=== PATIENT | female | born 1935 | race Caucasian/White ===

== ENCOUNTER → 2017-08-03 | Outpatient (CLI) | payer MEDICARE, OTHER ==
[~2017-08-03] MED LIST: ASPI81EC PO; ATEN50; BUPIVICAINE TOP; CHOL10002 PO; CONEST.625; DEXA2 PO; DEXA4 PO; DIPATR; DONE5 PO; DOXA4 PO; EPOE20I; ERGO400; ERGO400 PO; ESOM20; ESOM20 PO; FENT50TP TOP; FERROUS SULFATE PO; FISH OIL 1,0001 EAC1 PO; GALA4 PO; GLUCOSAMINE SU PO; HYDMETSO; KETAMINE TOP; LEVSOD50 PO; MULVITMIND; OMEPRAZOLE MAGN20 MG PO; OXYC5 PO; OXYC80ER PO; PIOG15 PO; PREG100 PO; PREG75 PO; QUET100 PO; QUET200 PO; SERT50; SERT50 PO; SIMV10 PO; TEMA30; TEMA30 PO; Tylenol Su160 MG/5 M PO; [UNRECOGNIZED DRUG - OTHER]
[2017-08-03 17:25] LABS: Source, Urine Clean Catch
[2017-08-03 17:44] LABS: Appearance, Urine Hazy (Clear); Bilirubin, Urine Neg (Neg); Blood, Urine 2+ (Neg); Color, Urine Yellow (P-Yellow); Glucose Qualitative, Urine Neg (Neg); Ketones, Urine Neg (Neg); Leukocyte Esterase, Urine 3+ (Neg); Nitrite, Urine Neg (Neg); Protein, Urine 2+ (Neg); Specific Gravity, Urine 1.025 (1.003-1.022); Urobilinogen, Urine NORM (Normal)
[2017-08-03 18:08] LABS: Amorphous Mod (0-Heavy); Bacteria Many /hpf; Squamous Epithelial Cells Few /hpf (Few); White Blood Cells, Urine 25-50 /hpf (0-5)
== END | disposition home or self-care (01) ==
LOC: LAB 16:45
DX: N39.0 Urinary tract infection, site not specified (principal)
CPT/HCPCS: 81001; 87077; 87086; 87186

== ENCOUNTER 2017-08-20 22:28 | Emergency (ER) | payer MEDICARE, OTHER ==
[~2017-08-20] VITALS: Ht 172.7 cm; Wt 74.8 kg
[~2017-08-20 22:28] MED LIST changes: -CHOL10002 PO; -DONE5 PO; -FENT50TP TOP; -FERROUS SULFATE PO; -FISH OIL 1,0001 EAC1 PO; -GALA4 PO; -GLUCOSAMINE SU PO; -LEVSOD50 PO; -OMEPRAZOLE MAGN20 MG PO; -PIOG15 PO; -PREG75 PO; -QUET100 PO; -SIMV10 PO; -Tylenol Su160 MG/5 M PO
[2017-08-20 23:03] LABS: BASOPHILS ABSOLUTE AUTO 0.03 K/mm3 (0.00-0.23); BASOPHILS PERCENT AUTO 0 % (0-2); EOSINOPHILS ABSOLUTE AUTO 0.13 K/mm3 (0.00-0.68); EOSINOPHILS PERCENT AUTO 2 % (0-6); IMMATURE GRAN ABSOLUTE AUTO 0.02 K/mm3 (0.00-0.10); IMMATURE GRAN PERCENT AUTO 0 % (0-1); LYMPHOCYTES ABSOLUTE AUTO 1.46 K/mm3 (0.84-5.20); LYMPHOCYTES PERCENT AUTO 20 % (21-46); MONOCYTES ABSOLUTE AUTO 0.56 K/mm3 (0.16-1.47); MONOCYTES PERCENT AUTO 8 % (4-13); Mean Corpuscular HGB 29.6 pg (26.0-34.0); Mean Corpuscular HGB Conc 31.6 g/dL (31.5-36.5); Mean Corpuscular Volume 94 fL (80-100); Mean Platelet Volume 10.1 fL (9.1-12.4); NEUTROPHILS ABSOLUTE AUTO 5.09 K/mm3 (1.96-9.15); NEUTROPHILS PERCENT AUTO 70 % (41-73); Platelet Count 205 K/mm3 (150-400); RDW Coefficient Variation 14.9 % (11.7-14.2); RDW Standard Deviation 51.7 fL (35.1-46.3); Red Blood Cell Count 4.05 M/mm3 (3.80-5.20); White Blood Cell Count 7.29 K/mm3 (4.00-11.30)
[2017-08-20] MEDS ORDERED: FENT50TP TOP (23:11)
[2017-08-20] MEDS ORDERED: FISH OIL 1,0001 EAC1 PO (23:13)
[2017-08-20] MEDS ORDERED: FERROUS SULFATE PO (23:13)
[2017-08-20] MEDS ORDERED: GALA4 PO (23:13)
[2017-08-20] MEDS ORDERED: GLUCOSAMINE SU PO (23:14)
[2017-08-20] MEDS ORDERED: PREG75 PO (23:15)
[2017-08-20] MEDS ORDERED: LEVSOD50 PO (23:15)
[2017-08-20] MEDS ORDERED: PIOG15 PO (23:16)
[2017-08-20] MEDS ORDERED: OMEPRAZOLE MAGN20 MG PO (23:16)
[2017-08-20] MEDS ORDERED: CHOL10002 PO (23:17)
[2017-08-20] MEDS ORDERED: SIMV10 PO (23:17)
[2017-08-20] MEDS ORDERED: QUET100 PO (23:21)
[2017-08-20 23:24] LABS: Alanine Aminotransfer (ALT/SGP 15 U/L (12-78); Albumin, Blood 3.7 g/dL (3.4-5.0); Albumin/Globulin Ratio 0.9 (0.8-1.8); Alk Phos 73 U/L (50-136); Anion Gap 6 mmol/L (6-16); Aspartate Aminotrans (AST/SGOT 22 U/L (12-37); Bilirubin, Total 0.2 mg/dL (0.1-1.0); Blood Urea Nitrogen 26 mg/dL (8-24); Bun/Creatinine Ratio 20.5 (12.0-20.0); CO2, Blood 27 mmol/L (21-32); Calcium, Blood 8.6 mg/dL (8.5-10.1); Chloride, Blood 107 mmol/L (98-108); Creatinine, Blood 1.27 mg/dL (0.40-1.00); Globulin, Blood 4.2 g/dL (2.2-4.0); Glomerular Filtration Rate 43 (60-); Glucose, Blood 115 mg/dL (70-99); Potassium, Blood 4.4 mmol/L (3.5-5.5); Sodium, Blood 140 mmol/L (136-145); Total Protein, Blood 7.9 g/dL (6.4-8.2); Troponin I <0.015 ng/mL (0.000-0.040)
[2017-08-21 01:47] LABS: Source, Urine Clean Catch
[2017-08-21 01:53] LABS: Bilirubin, Urine Neg (Neg); Blood, Urine Neg (Neg); Glucose Qualitative, Urine Neg (Neg); Ketones, Urine Neg (Neg); Leukocyte Esterase, Urine Neg (Neg); Nitrite, Urine Neg (Neg); Protein, Urine Neg (Neg); Urobilinogen, Urine NORM (Normal)
[2017-08-21 01:59] LABS: Appearance, Urine Clear (Clear); Color, Urine Yellow (P-Yellow)
== END 2017-08-21 02:57 | disposition home or self-care (01) ==
LOC: ER 22:28
PROVIDERS: Emergency Medicine
DX: R10.9 Unspecified abdominal pain (principal); N20.0 Calculus of kidney; N21.0 Calculus in bladder; Z88.8 Allergy status to other drugs, medicaments and biological substances; Z88.0 Allergy status to penicillin; Z88.2 Allergy status to sulfonamides; Z88.5 Allergy status to narcotic agent; Z88.6 Allergy status to analgesic agent; Z88.1 Allergy status to other antibiotic agents; Z79.899 Other long term (current) drug therapy; Z79.82 Long term (current) use of aspirin
CPT/HCPCS: 36415; 71046; 74176; 80053; 81003; 83690; 84484; 85025; 93005; 93010; 99284

== ENCOUNTER 2017-10-24 13:54 | Emergency (ER) | payer MEDICARE, OTHER ==
[~2017-10-24] VITALS: Ht 172.7 cm; Wt 81.7 kg
[~2017-10-24 13:54] MED LIST changes: +CHOL10002 PO; +FENT50TP TOP; +FERROUS SULFATE PO; +FISH OIL 1,0001 EAC1 PO; +GALA4 PO; +GLUCOSAMINE SU PO; +LEVSOD50 PO; +OMEPRAZOLE MAGN20 MG PO; +PIOG15 PO; +PREG75 PO; +QUET100 PO; +SIMV10 PO
[2017-10-24] MEDS ORDERED: DONE5 PO (14:03)
[2017-10-24] MEDS ORDERED: SERT50 (14:04)
[2017-10-24] MEDS ORDERED: Tylenol Su160 MG/5 M PO (14:41)
== END 2017-10-24 14:56 | disposition home or self-care (01) ==
LOC: ER 13:54
DX: S93.401A Sprain of unspecified ligament of right ankle, initial encounter (principal); F03.90 Unspecified dementia, unspecified severity, without behavioral disturbance, psychotic disturbance, mood disturbance, and anxiety; Z88.0 Allergy status to penicillin; Z88.8 Allergy status to other drugs, medicaments and biological substances; Z88.2 Allergy status to sulfonamides; Z88.5 Allergy status to narcotic agent; Z88.6 Allergy status to analgesic agent; Z88.1 Allergy status to other antibiotic agents; Z79.899 Other long term (current) drug therapy; Z79.82 Long term (current) use of aspirin; X37.1XXA Tornado, initial encounter
CPT/HCPCS: 73610; 99283

== ENCOUNTER 2018-07-31 21:21 | Observation (INO) | payer MEDICARE, OTHER ==
[~2018-07-31] VITALS: Ht 167.6 cm; Wt 62.7 kg
[~2018-07-31 21:21] MED LIST changes: +ASPI81CH PO; -ASPI81EC PO; +DONE5 PO; +Tylenol Su160 MG/5 M PO
[2018-07-31] MEDS ORDERED: DOCU100 PO (21:46)
[2018-07-31 21:49] LABS: BASOPHILS ABSOLUTE AUTO 0.03 K/mm3 (0.00-0.23); BASOPHILS PERCENT AUTO 1 % (0-2); EOSINOPHILS ABSOLUTE AUTO 0.09 K/mm3 (0.00-0.68); EOSINOPHILS PERCENT AUTO 2 % (0-6); Hematocrit 39.7 % (33.0-51.0); Hemoglobin 12.4 g/dL (11.5-16.0); IMMATURE GRAN ABSOLUTE AUTO 0.02 K/mm3 (0.00-0.10); IMMATURE GRAN PERCENT AUTO 0 % (0-1); LYMPHOCYTES ABSOLUTE AUTO 1.49 K/mm3 (0.84-5.20); LYMPHOCYTES PERCENT AUTO 27 % (21-46); MONOCYTES ABSOLUTE AUTO 0.57 K/mm3 (0.16-1.47); MONOCYTES PERCENT AUTO 10 % (4-13); Mean Corpuscular HGB 29.9 pg (26.0-34.0); Mean Corpuscular HGB Conc 31.2 g/dL (31.5-36.5); Mean Corpuscular Volume 96 fL (80-100); NEUTROPHILS ABSOLUTE AUTO 3.37 K/mm3 (1.96-9.15); NEUTROPHILS PERCENT AUTO 61 % (41-73); RDW Coefficient Variation 14.8 % (11.7-14.2); RDW Standard Deviation 51.5 fL (35.1-46.3); Red Blood Cell Count 4.15 M/mm3 (3.80-5.20); White Blood Cell Count 5.57 K/mm3 (4.00-11.30)
[2018-07-31 21:54] LABS: Mean Platelet Volume 11.1 fL (9.1-12.4); Platelet Count 208 K/mm3 (150-400)
[2018-07-31 22:02] LABS: Alanine Aminotransfer (ALT/SGP 18 U/L (12-78); Albumin, Blood 3.9 g/dL (3.4-5.0); Albumin/Globulin Ratio 0.9 (0.8-1.8); Alk Phos 76 U/L (50-136); Anion Gap 8 mmol/L (6-16); Aspartate Aminotrans (AST/SGOT 27 U/L (12-37); Bilirubin, Total 0.2 mg/dL (0.1-1.0); Blood Urea Nitrogen 26 mg/dL (8-24); Bun/Creatinine Ratio 22.2 (12.0-20.0); CO2, Blood 27 mmol/L (21-32); Calcium, Blood 8.8 mg/dL (8.5-10.1); Chloride, Blood 108 mmol/L (98-108); Creatinine, Blood 1.17 mg/dL (0.40-1.00); Globulin, Blood 4.2 g/dL (2.2-4.0); Glomerular Filtration Rate 47 (60-); Glucose, Blood 138 mg/dL (70-99); Potassium, Blood 4.2 mmol/L (3.5-5.5); Sodium, Blood 143 mmol/L (136-145); Total Protein, Blood 8.1 g/dL (6.4-8.2); Troponin I <0.015 ng/mL (0.000-0.040)
--- NOTE | 2018-08-01 13:01 | NUR ---
SHE HAS HAD AN UNEVENTFUL DAY WITHOUT PAIN. SHE SMILES MOST OF THE TIME. HER HAS BEEN AT BEDSIDE A LOT OF THE DAY. SHE AMBULATES IN ROOM WITH 1 ASSIST. EATING WELL AND VOIDING OK. COLOSTOMY L ABD WITHOUT STOOL IN BAG BUT FULL OF GAS. BAG BURPED. NO DOCTOR ROUNDED YET TODAY.
[2018-08-01] MEDS ORDERED: Fentanyl1 EACH TOP (14:38)
--- NOTE | 2018-08-01 15:24 | NUR ---
DISCHARGED BACK TO HER HOME AT [facility] AT 1445 WITH INSTRUCTIONS AND BELONGINGS. HER DROVE HER. NO NEW MEDS. NO PROBLEMS.
== END 2018-08-01 14:51 | disposition home or self-care (01) ==
LOC: ER 21:21 → MEDS 21:22
PROVIDERS: Emergency Medicine; ADMIT Hospitalist
DX: R07.9 Chest pain, unspecified (principal); R10.13 Epigastric pain; F03.90 Unspecified dementia, unspecified severity, without behavioral disturbance, psychotic disturbance, mood disturbance, and anxiety; E11.9 Type 2 diabetes mellitus without complications; I10 Essential (primary) hypertension; E03.9 Hypothyroidism, unspecified; Z66 Do not resuscitate; Z88.0 Allergy status to penicillin; Z88.5 Allergy status to narcotic agent; Z88.8 Allergy status to other drugs, medicaments and biological substances; Z88.6 Allergy status to analgesic agent; Z88.2 Allergy status to sulfonamides; Z79.899 Other long term (current) drug therapy; Z79.82 Long term (current) use of aspirin
CPT/HCPCS: 36415; 71046; 80053; 82947; 83690; 83880; 84484; 85025; 93005; 93010; 96372; G0378; J1650; J2405; J3010

== ENCOUNTER 2018-10-15 21:50 | Emergency (ER) | payer MEDICARE, OTHER ==
[~2018-10-15] VITALS: Ht 157.5 cm; Wt 59.0 kg
[~2018-10-15 21:50] MED LIST changes: +DOCU100 PO; +Fentanyl1 EACH TOP
[2018-10-15 23:09] LABS: BASOPHILS ABSOLUTE AUTO 0.03 K/mm3 (0.00-0.23); BASOPHILS PERCENT AUTO 1 % (0-2); EOSINOPHILS PERCENT AUTO 2 % (0-6); Hematocrit 37.7 % (33.0-51.0); Hemoglobin 11.7 g/dL (11.5-16.0); IMMATURE GRAN ABSOLUTE AUTO 0.02 K/mm3 (0.00-0.10); IMMATURE GRAN PERCENT AUTO 0 % (0-1); LYMPHOCYTES ABSOLUTE AUTO 1.76 K/mm3 (0.84-5.20); LYMPHOCYTES PERCENT AUTO 27 % (21-46); MONOCYTES ABSOLUTE AUTO 0.61 K/mm3 (0.16-1.47); MONOCYTES PERCENT AUTO 10 % (4-13); Mean Corpuscular HGB 29.5 pg (26.0-34.0); Mean Corpuscular Volume 95 fL (80-100); Mean Platelet Volume 10.6 fL (9.1-12.4); NEUTROPHILS PERCENT AUTO 61 % (41-73); Platelet Count 220 K/mm3 (150-400); RDW Coefficient Variation 14.6 % (11.7-14.2); RDW Standard Deviation 51.8 fL (35.1-46.3); Red Blood Cell Count 3.96 M/mm3 (3.80-5.20); White Blood Cell Count 6.42 K/mm3 (4.00-11.30)
[2018-10-15 23:28] LABS: Albumin, Blood 3.6 g/dL (3.4-5.0); Albumin/Globulin Ratio 0.9 (0.8-1.8); Bilirubin, Total 0.4 mg/dL (0.1-1.0); Bun/Creatinine Ratio 23.5 (12.0-20.0); Creatinine, Blood 1.15 mg/dL (0.40-1.00); Globulin, Blood 4.1 g/dL (2.2-4.0); Potassium, Blood 4.4 mmol/L (3.5-5.5); Total Protein, Blood 7.7 g/dL (6.4-8.2)
== END 2018-10-16 02:30 | disposition home or self-care (01) ==
LOC: ER 21:50
PROVIDERS: Emergency Medicine
DX: R10.9 Unspecified abdominal pain (principal); Z88.0 Allergy status to penicillin; Z88.8 Allergy status to other drugs, medicaments and biological substances; Z88.2 Allergy status to sulfonamides; Z88.6 Allergy status to analgesic agent; Z88.1 Allergy status to other antibiotic agents; Z79.899 Other long term (current) drug therapy; Z79.82 Long term (current) use of aspirin; Z79.891 Long term (current) use of opiate analgesic; F03.90 Unspecified dementia, unspecified severity, without behavioral disturbance, psychotic disturbance, mood disturbance, and anxiety; E11.9 Type 2 diabetes mellitus without complications; E03.9 Hypothyroidism, unspecified
CPT/HCPCS: 36415; 74018; 80053; 83690; 85025; 96361; 96374; 99284-25; J3010; J7030

== ENCOUNTER 2019-02-22 11:04 | Emergency (ER) | payer MEDICARE, OTHER ==
[~2019-02-22] VITALS: Ht 157.5 cm; Wt 56.7 kg
== END 2019-02-22 11:58 | disposition home or self-care (01) ==
LOC: ER 11:04
DX: S09.90XA Unspecified injury of head, initial encounter (principal); F03.90 Unspecified dementia, unspecified severity, without behavioral disturbance, psychotic disturbance, mood disturbance, and anxiety; Z88.8 Allergy status to other drugs, medicaments and biological substances; Z88.0 Allergy status to penicillin; Z88.2 Allergy status to sulfonamides; Z88.5 Allergy status to narcotic agent; Z88.1 Allergy status to other antibiotic agents; Z79.899 Other long term (current) drug therapy; Z79.82 Long term (current) use of aspirin; W06.XXXA Fall from bed, initial encounter
CPT/HCPCS: 99283

== ENCOUNTER 2019-04-19 11:12 | Emergency (ER) | payer MEDICARE, OTHER ==
[~2019-04-19] VITALS: Ht 162.6 cm; Wt 61.7 kg
[2019-04-19] MEDS ORDERED: CEPH500 PO (12:48)
[2019-04-19] MEDS ORDERED: CLOTRIMAZOLE AF1524 TOP (12:48)
== END 2019-04-19 13:38 | disposition home or self-care (01) ==
LOC: ER 11:12
DX: K94.02 Colostomy infection (principal); L03.311 Cellulitis of abdominal wall; F03.90 Unspecified dementia, unspecified severity, without behavioral disturbance, psychotic disturbance, mood disturbance, and anxiety; Z88.0 Allergy status to penicillin; Z88.2 Allergy status to sulfonamides; Z88.5 Allergy status to narcotic agent; Z88.8 Allergy status to other drugs, medicaments and biological substances
CPT/HCPCS: 99283; A9270-GY

== ENCOUNTER → 2019-05-14 | Outpatient (CLI) | payer MEDICARE, OTHER ==
[~2019-05-14] MED LIST changes: +CEPH500 PO; +CLOTRIMAZOLE AF1524 TOP
[2019-05-14 13:29] LABS: Bilirubin, Urine Neg (Neg); Blood, Urine 2+ (Neg); Glucose Qualitative, Urine Neg (Neg); Ketones, Urine Neg (Neg); Leukocyte Esterase, Urine 3+ (Neg); Nitrite, Urine Pos (Neg); Protein, Urine 2+ (Neg); Specific Gravity, Urine 1.015 (1.003-1.022); Urobilinogen, Urine NORM (Normal); pH, Urine 6.5 (5.0-8.0)
[2019-05-14 13:47] LABS: Appearance, Urine Hazy (Clear); Bacteria Many /hpf; Color, Urine Yellow (P-Yellow); Squamous Epithelial Cells Few /hpf (Few); White Blood Cells, Urine TNTC /hpf (0-5)
== END | disposition home or self-care (01) ==
LOC: LAB 12:35 → LAB SHORT 12:35
DX: N39.0 Urinary tract infection, site not specified (principal)
CPT/HCPCS: 81001; 87077; 87086; 87186

== ENCOUNTER → 2019-06-08 | Outpatient (CLI) | payer MEDICARE, OTHER ==
[2019-06-08 12:03] LABS: Source, Urine Clean Catch
[2019-06-08 12:37] LABS: Appearance, Urine Hazy (Clear); Bilirubin, Urine Neg (Neg); Blood, Urine Neg (Neg); Color, Urine Yellow (P-Yellow); Glucose Qualitative, Urine Neg (Neg); Ketones, Urine Neg (Neg); Leukocyte Esterase, Urine 2+ (Neg); Nitrite, Urine Pos (Neg); Protein, Urine 1+ (Neg); Urobilinogen, Urine NORM (Normal)
[2019-06-08 12:59] LABS: Bacteria Many /hpf; Squamous Epithelial Cells Few /hpf (Few)
== END | disposition home or self-care (01) ==
LOC: LAB SHORT 11:58 → LAB 11:58
DX: N39.0 Urinary tract infection, site not specified (principal)
CPT/HCPCS: 81001; 87077; 87086; 87186

== ENCOUNTER → 2019-08-24 | Outpatient (CLI) | payer MEDICARE, OTHER ==
[~2019-08-24] MED LIST changes: +ACET325 PO; +Artificial Tea1 EACH BOTHEYES; +BISA10S PR; +Calmoseptine Oi71 GM TOP; +EXPECTORANT DM PO; +FISH OIL 1,4001 EACH PO; +GLUTOSE PO; +LEVSOD25 PO; +LOPE2C PO; +MICONAZOLE 745 GM TOP; +MILK OF MA400 MG/5 M PO; +MIRALAX17 GM PO; +MYLANTA TONIGH355 ML PO; +Macrobid 100 M100 MG PO
[2019-08-24 18:38] LABS: Source, Urine Clean Catch
[2019-08-24 19:29] LABS: Bilirubin, Urine Neg (Neg); Blood, Urine Neg (Neg); Glucose Qualitative, Urine Neg (Neg); Ketones, Urine Neg (Neg); Leukocyte Esterase, Urine 2+ (Neg); Nitrite, Urine Pos (Neg); Protein, Urine Neg (Neg); Urobilinogen, Urine NORM (Normal)
[2019-08-24 19:39] LABS: Appearance, Urine Cloudy (Clear); Color, Urine Yellow (P-Yellow)
[2019-08-24 19:40] LABS: Red Blood Cells, Urine 0-2 /hpf (0-2); Triple Phosphate Crystals Mod /hpf
[2019-08-24 19:41] LABS: Bacteria Many /hpf; Squamous Epithelial Cells Few /hpf (Few)
== END | disposition home or self-care (01) ==
LOC: LAB 18:35 → LAB SHORT 18:35
DX: N39.0 Urinary tract infection, site not specified (principal)
CPT/HCPCS: 81001; 87077; 87086; 87186

== ENCOUNTER 2019-08-28 21:56 | Emergency (ER) | payer MEDICARE, OTHER ==
[~2019-08-28] VITALS: Ht 165.1 cm; Wt 56.7 kg
[~2019-08-28 21:56] MED LIST changes: -ACET325 PO; -Artificial Tea1 EACH BOTHEYES; -BISA10S PR; -Calmoseptine Oi71 GM TOP; -EXPECTORANT DM PO; -FISH OIL 1,4001 EACH PO; -GLUTOSE PO; -LEVSOD25 PO; -LOPE2C PO; -MICONAZOLE 745 GM TOP; -MILK OF MA400 MG/5 M PO; -MIRALAX17 GM PO; -MYLANTA TONIGH355 ML PO; -Macrobid 100 M100 MG PO
[2019-08-28] MEDS ORDERED: Calmoseptine Oi71 GM TOP (22:17)
[2019-08-28] MEDS ORDERED: FISH OIL 1,4001 EACH PO (22:20)
[2019-08-28] MEDS ORDERED: LEVSOD25 PO (22:21)
[2019-08-28] MEDS ORDERED: MICONAZOLE 745 GM TOP (22:30)
[2019-08-28] MEDS ORDERED: Macrobid 100 M100 MG PO (22:31)
[2019-08-28] MEDS ORDERED: MIRALAX17 GM PO (22:32)
[2019-08-28] MEDS ORDERED: ACET325 PO (22:37)
[2019-08-28] MEDS ORDERED: MYLANTA TONIGH355 ML PO (22:41)
[2019-08-28] MEDS ORDERED: BISA10S PR (22:43)
[2019-08-28] MEDS ORDERED: Artificial Tea1 EACH BOTHEYES (22:43)
[2019-08-28] MEDS ORDERED: GLUTOSE PO (22:44)
[2019-08-28] MEDS ORDERED: EXPECTORANT DM PO (22:46)
[2019-08-28] MEDS ORDERED: MILK OF MA400 MG/5 M PO (22:46)
[2019-08-28] MEDS ORDERED: LOPE2C PO (22:46)
== END 2019-08-29 00:05 | disposition home or self-care (01) ==
LOC: ER 21:56
DX: S09.90XA Unspecified injury of head, initial encounter (principal); E11.9 Type 2 diabetes mellitus without complications; E03.9 Hypothyroidism, unspecified; F03.90 Unspecified dementia, unspecified severity, without behavioral disturbance, psychotic disturbance, mood disturbance, and anxiety; Z88.0 Allergy status to penicillin; Z88.2 Allergy status to sulfonamides; Z88.5 Allergy status to narcotic agent; Z88.6 Allergy status to analgesic agent; Z88.8 Allergy status to other drugs, medicaments and biological substances; Z79.899 Other long term (current) drug therapy; Z79.82 Long term (current) use of aspirin; Z79.2 Long term (current) use of antibiotics; W06.XXXA Fall from bed, initial encounter
CPT/HCPCS: 70450; 72125; 99284-25; L0160

== ENCOUNTER → 2020-01-03 | Outpatient (CLI) | payer MEDICARE, OTHER ==
[~2020-01-03] MED LIST changes: +ACET325 PO; +Artificial Tea1 EACH BOTHEYES; +BISA10S PR; +Calmoseptine Oi71 GM TOP; +EXPECTORANT DM PO; +FISH OIL 1,4001 EACH PO; +GLUTOSE PO; +LEVSOD25 PO; +LOPE2C PO; +MICONAZOLE 745 GM TOP; +MILK OF MA400 MG/5 M PO; +MIRALAX17 GM PO; +MYLANTA TONIGH355 ML PO; +Macrobid 100 M100 MG PO
[2020-01-03 11:23] LABS: Source, Urine Clean Catch
[2020-01-03 12:39] LABS: Appearance, Urine Cloudy (Clear); Bilirubin, Urine Neg (Neg); Blood, Urine 1+ (Neg); Color, Urine Yellow (P-Yellow); Glucose Qualitative, Urine Neg (Neg); Ketones, Urine Neg (Neg); Leukocyte Esterase, Urine 2+ (Neg); Nitrite, Urine Neg (Neg); Protein, Urine 2+ (Neg); Specific Gravity, Urine 1.015 (1.003-1.022); Urobilinogen, Urine NORM (Normal); pH, Urine 6.5 (5.0-8.0)
[2020-01-03 13:47] LABS: Bacteria Many /hpf; Red Blood Cells, Urine 0-2 /hpf (0-2); Squamous Epithelial Cells Rare /hpf (Few)
[2020-01-03 13:48] LABS: Renal Epithelial Rare /hpf (0-Rare)
== END | disposition home or self-care (01) ==
LOC: LAB SHORT 11:17 → LAB 11:17
PROVIDERS: Nurse Practitioner Family
DX: N39.0 Urinary tract infection, site not specified (principal)
CPT/HCPCS: 81001; 87077; 87086; 87186

== ENCOUNTER 2020-02-14 18:31 | Emergency (ER) | payer MEDICARE, OTHER ==
[~2020-02-14] VITALS: Ht 165.1 cm; Wt 63.5 kg
[2020-02-14] MEDS ORDERED: FENTANYL1 EA14 TOP (18:46)
== END 2020-02-14 21:00 | disposition home or self-care (01) ==
LOC: ER 18:31
DX: S16.1XXA Strain of muscle, fascia and tendon at neck level, initial encounter (principal); E03.9 Hypothyroidism, unspecified; E11.9 Type 2 diabetes mellitus without complications; F03.90 Unspecified dementia, unspecified severity, without behavioral disturbance, psychotic disturbance, mood disturbance, and anxiety; Z91.81 History of falling; Z88.0 Allergy status to penicillin; Z88.2 Allergy status to sulfonamides; Z88.5 Allergy status to narcotic agent; Z88.8 Allergy status to other drugs, medicaments and biological substances; Z88.1 Allergy status to other antibiotic agents; Z79.899 Other long term (current) drug therapy; Z79.82 Long term (current) use of aspirin; W18.30XA Fall on same level, unspecified, initial encounter; Y92.129 Unspecified place in nursing home as the place of occurrence of the external cause
CPT/HCPCS: 72125; 99284-25

== ENCOUNTER → 2020-06-04 | Outpatient (CLI) | payer MEDICARE, OTHER ==
[~2020-06-04] MED LIST changes: +CEFP200 PO; +FENTANYL1 EA14 TOP
[2020-06-04 15:25] LABS: Appearance, Urine Cloudy (Clear); Bilirubin, Urine Neg (Neg); Blood, Urine 5+ (Neg); Color, Urine Amber (P-Yellow); Glucose Qualitative, Urine Neg (Neg); Ketones, Urine Neg (Neg); Leukocyte Esterase, Urine 3+ (Neg); Nitrite, Urine Neg (Neg); Protein, Urine 3+ (Neg); Urobilinogen, Urine NORM (Normal)
[2020-06-04 15:41] LABS: Red Blood Cells, Urine TNTC /hpf (0-2); White Blood Cells, Urine TNTC /hpf (0-5)
[2020-06-04 15:42] LABS: Bacteria Many /hpf; Squamous Epithelial Cells Few /hpf (Few)
== END | disposition home or self-care (01) ==
LOC: LAB SHORT 12:15 → LAB 12:15
PROVIDERS: Family Medicine
DX: N39.0 Urinary tract infection, site not specified (principal)
CPT/HCPCS: 81001; 87077; 87086; 87186

== ENCOUNTER 2020-06-09 05:09 | Emergency (ER) | payer MEDICARE, OTHER ==
[~2020-06-09] VITALS: Ht 157.5 cm; Wt 54.4 kg
[~2020-06-09 05:09] MED LIST changes: -CEFP200 PO
[2020-06-09] MEDS ORDERED: OXYC5 PO (05:27)
[2020-06-09 05:42] LABS: Source, Urine Catheter
[2020-06-09 05:48] LABS: BASOPHILS ABSOLUTE AUTO 0.04 K/mm3 (0.00-0.23); BASOPHILS PERCENT AUTO 1 % (0-2); EOSINOPHILS ABSOLUTE AUTO 0.21 K/mm3 (0.00-0.68); EOSINOPHILS PERCENT AUTO 3 % (0-6); Hematocrit 37.4 % (33.0-51.0); Hemoglobin 11.7 g/dL (11.5-16.0); IMMATURE GRAN ABSOLUTE AUTO 0.03 K/mm3 (0.00-0.10); IMMATURE GRAN PERCENT AUTO 1 % (0-1); LYMPHOCYTES PERCENT AUTO 23 % (21-46); MONOCYTES PERCENT AUTO 11 % (4-13); Mean Corpuscular HGB 28.7 pg (26.0-34.0); Mean Corpuscular HGB Conc 31.3 g/dL (31.5-36.5); Mean Corpuscular Volume 92 fL (80-100); Mean Platelet Volume 10.6 fL (9.1-12.4); NEUTROPHILS ABSOLUTE AUTO 3.85 K/mm3 (1.96-9.15); NEUTROPHILS PERCENT AUTO 62 % (41-73); Platelet Count 224 K/mm3 (150-400); RDW Coefficient Variation 14.3 % (11.7-14.2); RDW Standard Deviation 48.9 fL (35.1-46.3); Red Blood Cell Count 4.07 M/mm3 (3.80-5.20); White Blood Cell Count 6.23 K/mm3 (4.00-11.30)
[2020-06-09 05:59] LABS: Appearance, Urine Bloody (Clear); Bilirubin, Urine Neg (Neg); Blood, Urine 5+ (Neg); Color, Urine Red (P-Yellow); Glucose Qualitative, Urine Neg (Neg); Ketones, Urine Neg (Neg); Leukocyte Esterase, Urine 2+ (Neg); Nitrite, Urine Neg (Neg); Protein, Urine 4+ (Neg); Urobilinogen, Urine NORM (Normal)
[2020-06-09 06:01] LABS: International Normalized Ratio 0.99; Prothrombin Time Results 10.6 Sec (9.7-11.5)
[2020-06-09 06:03] LABS: Albumin, Blood 3.2 g/dL (3.4-5.0); Albumin/Globulin Ratio 0.8 (0.8-1.8); Bilirubin, Total 0.3 mg/dL (0.1-1.0); Bun/Creatinine Ratio 17.1 (12.0-20.0); Calcium, Blood 8.5 mg/dL (8.5-10.1); Creatinine, Blood 1.11 mg/dL (0.40-1.00); Potassium, Blood 4.2 mmol/L (3.5-5.5); Total Protein, Blood 7.2 g/dL (6.4-8.2)
[2020-06-09 06:08] LABS: Bacteria Few /hpf; Red Blood Cells, Urine TNTC /hpf (0-2); Squamous Epithelial Cells Not Seen /hpf (Few)
[2020-06-09] MEDS ORDERED: CEFP200 PO (06:28)
== END 2020-06-09 07:15 | disposition home or self-care (01) ==
LOC: ER 05:09
PROVIDERS: Emergency Medicine
DX: R31.9 Hematuria, unspecified (principal); E11.9 Type 2 diabetes mellitus without complications; E03.9 Hypothyroidism, unspecified; Z66 Do not resuscitate; Z79.4 Long term (current) use of insulin; Z79.82 Long term (current) use of aspirin; Z79.899 Other long term (current) drug therapy; Z88.0 Allergy status to penicillin; Z88.2 Allergy status to sulfonamides; Z88.5 Allergy status to narcotic agent; Z88.6 Allergy status to analgesic agent; Z88.8 Allergy status to other drugs, medicaments and biological substances; Z88.4 Allergy status to anesthetic agent
CPT/HCPCS: 36415; 51701; 80053; 81001; 85025; 85610; 85730; 87086; 99284

== ENCOUNTER 2020-06-11 15:09 | Emergency (ER) | payer MEDICARE, OTHER ==
[~2020-06-11] VITALS: Ht 162.6 cm; Wt 63.5 kg
[~2020-06-11 15:09] MED LIST changes: +CEFP200 PO
[2020-06-11 16:10] LABS: BASOPHILS ABSOLUTE AUTO 0.06 K/mm3 (0.00-0.23); BASOPHILS PERCENT AUTO 1 % (0-2); EOSINOPHILS ABSOLUTE AUTO 0.11 K/mm3 (0.00-0.68); EOSINOPHILS PERCENT AUTO 1 % (0-6); Hematocrit 36.8 % (33.0-51.0); Hemoglobin 10.8 g/dL (11.5-16.0); IMMATURE GRAN ABSOLUTE AUTO 0.03 K/mm3 (0.00-0.10); IMMATURE GRAN PERCENT AUTO 0 % (0-1); LYMPHOCYTES ABSOLUTE AUTO 1.58 K/mm3 (0.84-5.20); LYMPHOCYTES PERCENT AUTO 20 % (21-46); MONOCYTES ABSOLUTE AUTO 0.69 K/mm3 (0.16-1.47); MONOCYTES PERCENT AUTO 9 % (4-13); Mean Corpuscular HGB 28.9 pg (26.0-34.0); Mean Corpuscular HGB Conc 29.3 g/dL (31.5-36.5); Mean Platelet Volume 10.7 fL (9.1-12.4); NEUTROPHILS ABSOLUTE AUTO 5.56 K/mm3 (1.96-9.15); NEUTROPHILS PERCENT AUTO 69 % (41-73); Platelet Count 225 K/mm3 (150-400); RDW Coefficient Variation 14.9 % (11.7-14.2); Red Blood Cell Count 3.74 M/mm3 (3.80-5.20); White Blood Cell Count 8.03 K/mm3 (4.00-11.30)
[2020-06-11 16:12] LABS: Mean Corpuscular Volume 98 fL (80-100)
[2020-06-11 16:26] LABS: Albumin, Blood 3.2 g/dL (3.4-5.0); Albumin/Globulin Ratio 0.8 (0.8-1.8); Bilirubin, Total 0.4 mg/dL (0.1-1.0); Bun/Creatinine Ratio 19.1 (12.0-20.0); Calcium, Blood 8.4 mg/dL (8.5-10.1); Creatinine, Blood 1.41 mg/dL (0.40-1.00); Globulin, Blood 4.2 g/dL (2.2-4.0); Total Protein, Blood 7.4 g/dL (6.4-8.2)
[2020-06-11 21:21] LABS: Source, Urine Clean Catch
[2020-06-11 21:27] LABS: Appearance, Urine Cloudy (Clear); Blood, Urine 4+ (Neg); Color, Urine Brown (P-Yellow); Glucose Qualitative, Urine Neg (Neg); Ketones, Urine Neg (Neg); Leukocyte Esterase, Urine Neg (Neg); Nitrite, Urine Neg (Neg); Protein, Urine 4+ (Neg); Specific Gravity, Urine 1.015 (1.003-1.022); Urobilinogen, Urine NORM (Normal)
[2020-06-11 21:35] LABS: Bilirubin, Urine 1+ (Neg)
[2020-06-11 21:38] LABS: Amorphous Heavy (0-Heavy); Bacteria Mod /hpf; Red Blood Cells, Urine TNTC /hpf (0-2); Squamous Epithelial Cells Rare /hpf (Few); White Blood Cells, Urine 25-50 /hpf (0-5)
[2020-06-12 01:08] LABS: Influenza A, PCR Negative (NEGATIVE); Influenza B, PCR Negative (NEGATIVE); Resp Syncytial Virus, PCR Negative (NEGATIVE); SARS-Cov-2 (COVID-19) PCR, MMC Negative (NEGATIVE)
== END 2020-06-12 00:07 | disposition short-term general hospital (02) ==
LOC: ER 15:09
PROVIDERS: Physician Assistant; Student in an Organized Health Care Education/Training Program
DX: K83.1 Obstruction of bile duct (principal); R31.9 Hematuria, unspecified; F03.90 Unspecified dementia, unspecified severity, without behavioral disturbance, psychotic disturbance, mood disturbance, and anxiety; E11.9 Type 2 diabetes mellitus without complications; E03.9 Hypothyroidism, unspecified; Z79.899 Other long term (current) drug therapy; Z20.822 Contact with and (suspected) exposure to COVID-19; Z79.4 Long term (current) use of insulin
CPT/HCPCS: 0241U; 36415; 51701; 51702; 74177; 80053; 81001; 85025; 87086; 96360-59; 96361-59; 99285-25; J7030; Q9967